=== PATIENT | male | born 1950 | race Caucasian/White ===

== ENCOUNTER 2016-08-23 16:21 | Emergency (ER) | payer OTHER, MEDICARE, MEDICAID ==
[2008-02-19 15:49] VITALS: BP 115/63
[~2016-08-23] VITALS: Ht 177.8 cm; Wt 102.3 kg
[~2016-08-23 16:21] MED LIST: ACTOS 15MG TAB15 MG PO; ACTOS30 MG PO; ASPIR-LOW81 MG PO; ASPIRIN 81M81 MG/TA2 PO; ATORVASTATIN; ETODOLAC400 MG PO; FORTAMET500 MG PO; GLUCOPHAGE1000 MG PO; LEVEMIR100 U/ML SC; LODINE400 MG PO; METFORMIN1000 MG PO; MOTRIN 400400 MG/TAB PO; MVI; PAXIL 10MG10 MG PO; PAXIL PO; PAXIL20 MG PO; TYLENOL ARTHRITIS; VICODIN 5/5001 UDTAB PO; ZYPREXA PO; ZYPREXA7.5 MG PO
[2016-08-23 17:17] VITALS: BP 138/78; PULSE 84
== END 2016-08-23 17:18 | disposition home or self-care (01) ==
LOC: COL.ER 16:21
DX: S16.1XXA Strain of muscle, fascia and tendon at neck level, initial encounter (principal); V49.88XA Car occupant (driver) (passenger) injured in other specified transport accidents, initial encounter; M25.78 Osteophyte, vertebrae

== ENCOUNTER → 2017-04-25 | Outpatient (CLI) | payer OTHER, MEDICARE, MEDICAID | LOC: SUN.DIA 12-17 09:16 | DX: E11.9 Type 2 diabetes mellitus without complications (principal); Z79.4 Long term (current) use of insulin; E78.5 Hyperlipidemia, unspecified; I10 Essential (primary) hypertension; E66.9 Obesity, unspecified; Z68.31 Body mass index [BMI] 31.0-31.9, adult; Z71.3 Dietary counseling and surveillance | CPT/HCPCS: G0108 ==

== ENCOUNTER → 2017-09-03 | Outpatient (CLI) | payer OTHER, MEDICARE, MEDICAID | LOC: SUN.DIA 08:37 | DX: E11.9 Type 2 diabetes mellitus without complications (principal); Z79.4 Long term (current) use of insulin; E78.5 Hyperlipidemia, unspecified; I10 Essential (primary) hypertension; E66.9 Obesity, unspecified; Z68.30 Body mass index [BMI] 30.0-30.9, adult; Z71.3 Dietary counseling and surveillance | CPT/HCPCS: G0108 ==

== ENCOUNTER → 2018-02-20 | Outpatient (CLI) | payer OTHER, MEDICARE, MEDICAID | LOC: SUN.DIA 10:08 | DX: E11.9 Type 2 diabetes mellitus without complications (principal); Z79.4 Long term (current) use of insulin; E78.5 Hyperlipidemia, unspecified; I10 Essential (primary) hypertension; E66.9 Obesity, unspecified; Z68.31 Body mass index [BMI] 31.0-31.9, adult; Z71.3 Dietary counseling and surveillance | CPT/HCPCS: G0108 ==

== ENCOUNTER → 2018-08-25 | Outpatient (CLI) | payer MEDICAID, MEDICARE | LOC: SUN.DIA 10:01 | DX: E11.9 Type 2 diabetes mellitus without complications (principal); E78.5 Hyperlipidemia, unspecified; I10 Essential (primary) hypertension; E66.9 Obesity, unspecified | CPT/HCPCS: G0108 ==

== ENCOUNTER 2018-12-21 14:31 | Emergency (ER) | payer OTHER, MEDICARE, MEDICAID ==
[2008-02-19 15:49] VITALS: BP 115/63
[~2018-12-21] VITALS: Ht 177.8 cm; Wt 100.0 kg
[2018-12-21 14:33] VITALS: TEMP 97.9
[2018-12-21] MEDS ORDERED: ZYPREXA20 MG PO (15:40)
[2018-12-21] MEDS ORDERED: FLEXERIL 1010 MG/TAB PO (15:42)
[2018-12-21 15:52] VITALS: BP 133/86; PULSE 90
== END 2018-12-21 15:53 | disposition home or self-care (01) ==
LOC: COL.ER 14:31
DX: S13.4XXA Sprain of ligaments of cervical spine, initial encounter (principal); E11.9 Type 2 diabetes mellitus without complications; Z79.82 Long term (current) use of aspirin; Z79.4 Long term (current) use of insulin; V43.52XA Car driver injured in collision with other type car in traffic accident, initial encounter

== ENCOUNTER → 2019-03-02 | Outpatient (CLI) | payer MEDICARE, MEDICAID ==
[~2019-03-02] MED LIST changes: +FLEXERIL 1010 MG/TAB PO; +ZYPREXA20 MG PO
== END ==
LOC: DIA.ED 10:07
DX: E11.9 Type 2 diabetes mellitus without complications (principal); E78.5 Hyperlipidemia, unspecified; I10 Essential (primary) hypertension; E66.9 Obesity, unspecified
CPT/HCPCS: G0108

== ENCOUNTER → 2019-09-28 | Outpatient (CLI) | payer MEDICARE, MEDICAID | LOC: DIA.ED 12:46 | DX: E11.9 Type 2 diabetes mellitus without complications (principal); Z79.4 Long term (current) use of insulin; Z68.32 Body mass index [BMI] 32.0-32.9, adult; E78.5 Hyperlipidemia, unspecified; I10 Essential (primary) hypertension | CPT/HCPCS: G0108 ==

== ENCOUNTER → 2020-03-28 | Outpatient (CLI) | payer MEDICARE, MEDICAID | LOC: DIA.ED 10:25 | DX: E11.9 Type 2 diabetes mellitus without complications (principal); Z79.84 Long term (current) use of oral hypoglycemic drugs; E78.5 Hyperlipidemia, unspecified; I10 Essential (primary) hypertension | CPT/HCPCS: G0270 ==

== ENCOUNTER 2020-04-27 19:16 | Emergency (ER) | payer MEDICARE, MEDICAID ==
[2008-02-19 15:49] VITALS: BP 115/63
[~2020-04-27] VITALS: Ht 177.8 cm; Wt 102.3 kg
[2020-04-27 19:27] VITALS: TEMP 97.3
[2020-04-27 20:32] LABS: BASO # 0.1 (0.0-0.2); EOS # 0.1 (0.0-0.7); GRAN # 3.5 (1.4-6.5); GRAN % 57.6 % (42.2-75.2); HEMATOCRIT 42.1 % (42.0-52.0); HEMOGLOBIN 15.1 g/dl (13.5-18.0); LYMPH # 1.9 (1.2-3.4); LYMPH % 31.6 % (20.0-51.0); MEAN CELL VOLUME 89 fl (80.0-100.0); MEAN CORPUSCULAR HEMOGLOBIN 32 pg (27.0-31.0); MEAN CORPUSCULAR HGB CONC 36 g/dl (33.0-37.0); MEAN PLATELET VOLUME 10.6 fl (7.4-10.4); MONO # 0.4 (0.1-0.6); MONO % 7.3 % (1.7-9.3); PLATELET COUNT 163 K/mm3 (130-400); RED BLOOD COUNT 4.73 M/mm3 (4.20-5.60); REDCELL DISTRIBUTION WIDTH-CV 12.4 % (11.5-14.5)
[2020-04-27 21:06] LABS: COLLECTION METHOD CLEAN CATCH
[2020-04-27 21:19] LABS: ALANINE AMINOTRANSFERASE 39 U/L (4-49); ALBUMIN 4.5 gm/dL (3.5-5.0); ALKALINE PHOSPHATASE 72 U/L (50-136); ANION GAP 12 mmol/L (7-16); AST,SGOT 48 U/L (15-37); BILIRUBIN,TOTAL 0.8 mg/dL (0.0-1.0); BLOOD UREA NITROGEN 16 mg/dL (9-20); CALCIUM 9.5 mg/dL (8.4-10.2); CARBON DIOXIDE 21 mmol/L (22-30); CHLORIDE 104 mmol/L (98-107); CREATININE, serum 1.03 (0.66-1.25); GLUCOSE 241 mg/dL (74-106); POTASSIUM 3.6 mmol/L (3.4-5.0); SODIUM 137 mmol/L (137-145); TOTAL PROTEIN 7.1 gm/dL (6.4-8.2)
[2020-04-27 21:20] LABS: ACETAMINOPHEN < 10 ug/mL (10-30); ALCOHOL(ethanol),MEDICAL < 10 mg/dL; C-REACTIVE PROTEIN < 0.5 mg/dL (0.0-0.9); SALICYLATE < 1.0 mg/dL
[2020-04-27 21:25] LABS: PH 5 (5-8); SQUAMOUS EPITHELIAL None Seen /hpf; URINE APPEARANCE Clear; URINE BACTERIA None Seen /hpf; URINE BILIRUBIN Negative (NEGATIVE); URINE BLOOD Negative (NEGATIVE); URINE COLOR Yellow; URINE GLUCOSE Negative (NEGATIVE); URINE KETONE Negative (NEGATIVE); URINE LEUKOCYTE ESTERASE Negative (NEGATIVE); URINE NITRATE Negative (NEGATIVE); URINE PROTEIN(semi-quant) Negative (NEGATIVE); URINE RBC 0-2 /hpf
[2020-04-27 21:34] LABS: TRICYCLIC ANTIDEPRESS URINE NEGATIVE
[2020-04-27 22:20] VITALS: BP 132/98; PULSE 92
== END 2020-04-27 22:20 | disposition home or self-care (01) ==
LOC: COL.ER 19:16
PROVIDERS: Emergency Medicine
DX: F29 Unspecified psychosis not due to a substance or known physiological condition (principal); E11.65 Type 2 diabetes mellitus with hyperglycemia; I10 Essential (primary) hypertension; Z79.4 Long term (current) use of insulin; Z79.82 Long term (current) use of aspirin
CPT/HCPCS: J1815; J7030

== ENCOUNTER → 2020-08-29 | Outpatient (CLI) | payer MEDICARE, MEDICAID | LOC: DIA.ED 13:26 | DX: E11.9 Type 2 diabetes mellitus without complications (principal); Z79.84 Long term (current) use of oral hypoglycemic drugs; E78.5 Hyperlipidemia, unspecified; I10 Essential (primary) hypertension; E66.8 Other obesity | CPT/HCPCS: G0108 ==

== ENCOUNTER → 2021-01-30 | Outpatient (CLI) | payer MEDICARE, MEDICAID | LOC: DIA.ED 09:12 | DX: E11.9 Type 2 diabetes mellitus without complications (principal); Z79.84 Long term (current) use of oral hypoglycemic drugs; E78.5 Hyperlipidemia, unspecified; I10 Essential (primary) hypertension | CPT/HCPCS: G0270 ==

== ENCOUNTER → 2021-07-03 | Outpatient (CLI) | payer MEDICARE, MEDICAID | LOC: DIA.ED 09:41 | DX: E11.65 Type 2 diabetes mellitus with hyperglycemia (principal); Z79.84 Long term (current) use of oral hypoglycemic drugs; E78.5 Hyperlipidemia, unspecified; I10 Essential (primary) hypertension | CPT/HCPCS: G0270 ==

== ENCOUNTER → 2021-09-18 | Outpatient (CLI) | payer MEDICARE, MEDICAID | LOC: ZCOL.LAB 16:31 | DX: R09.81 Nasal congestion (principal); Z20.822 Contact with and (suspected) exposure to COVID-19 ==

== ENCOUNTER → 2021-11-27 | Outpatient (CLI) | payer MEDICARE, MEDICAID | LOC: DIA.ED 10:17 | DX: E11.65 Type 2 diabetes mellitus with hyperglycemia (principal); Z79.84 Long term (current) use of oral hypoglycemic drugs; E78.5 Hyperlipidemia, unspecified; I10 Essential (primary) hypertension | CPT/HCPCS: G0270 ==

== ENCOUNTER 2022-02-01 19:03 | Emergency (ER) | payer MEDICARE, MEDICAID ==
[~2022-02-01] VITALS: Ht 177.8 cm; Wt 90.9 kg
[2022-02-01 20:26] LABS: BASO % 0.8 % (0.0-2.0); EOS # 0.1 K/mm3 (0.0-0.7); EOS % 1.1 % (0.0-4.0); GRAN # 4.1 K/mm3 (1.4-6.5); GRAN % 78.9 % (42.2-75.2); HEMATOCRIT 38.4 % (42.0-52.0); HEMOGLOBIN 13.4 g/dl (13.5-18.0); LYMPH # 0.5 K/mm3 (1.2-3.4); LYMPH % 9.6 % (20.0-51.0); MEAN CELL VOLUME 90 fl (80.0-100.0); MEAN CORPUSCULAR HEMOGLOBIN 32 pg (27-31); MEAN CORPUSCULAR HGB CONC 35 g/dl (33.0-37.0); MEAN PLATELET VOLUME 10.1 fl (7.4-10.4); MONO # 0.5 K/mm3 (0.1-0.6); MONO % 9.2 % (1.7-9.3); PLATELET COUNT 145 K/mm3 (130-400); RED BLOOD COUNT 4.26 M/mm3 (4.20-5.60); REDCELL DISTRIBUTION WIDTH-CV 12.7 % (11.5-14.5)
[2022-02-01 20:44] LABS: ALANINE AMINOTRANSFERASE 32 U/L (0-55); ALBUMIN 3.6 gm/dL (3.4-4.8); ALKALINE PHOSPHATASE 66 U/L (40-150); ANION GAP 12 mmol/L (7-16); AST,SGOT 27 U/L (5-34); BILIRUBIN,TOTAL 0.8 mg/dL (0.2-1.2); BLOOD UREA NITROGEN 13 mg/dL (8-26); C-REACTIVE PROTEIN 0.21 mg/dL (0.00-0.50); CALCIUM 8.8 mg/dL (8.4-10.2); CARBON DIOXIDE 21 mmol/L (23-31); CHLORIDE 105 mmol/L (98-107); CREATININE, serum 0.77 mg/dL (0.72-1.25); GLUCOSE 183 mg/dL (70-99); POTASSIUM 3.7 mmol/L (3.5-4.5); SODIUM 138 mmol/L (136-145); TOTAL PROTEIN 6.4 gm/dL (6.2-8.1)
[2022-02-01 20:54] LABS: TROPONIN-I < 0.010 ng/mL (0.00-0.033)
[2022-02-01 21:39] LABS: COLLECTION METHOD CLEAN CATCH
[2022-02-01 21:54] LABS: PH 6 (5-8); SQUAMOUS EPITHELIAL None Seen /hpf (0-10); URINE APPEARANCE Clear (CLEAR/HAZY); URINE BACTERIA None Seen /hpf (NONE SEEN); URINE BILIRUBIN Negative (NEGATIVE); URINE BLOOD Negative (NEGATIVE); URINE COLOR Yellow (YELLOW); URINE GLUCOSE Negative (NEGATIVE); URINE KETONE Negative (NEGATIVE); URINE LEUKOCYTE ESTERASE Negative (NEGATIVE); URINE NITRATE Negative (NEGATIVE); URINE PROTEIN(semi-quant) Negative (NEGATIVE); URINE RBC None Seen /hpf (0-2); URINE UROBILINOGEN >=4.0 (NEGATIVE)
[2022-02-01 22:19] VITALS: BP 138/82; PULSE 98; TEMP 98.9
== END 2022-02-01 22:19 | disposition home or self-care (01) ==
LOC: COL.ER 19:03
PROVIDERS: Family Medicine
DX: R53.81 Other malaise (principal)
CPT/HCPCS: J7030

== ENCOUNTER 2023-10-11 19:49 | Emergency (ER) | payer MEDICARE, MEDICAID ==
[~2023-10-11] VITALS: Ht 177.8 cm; Wt 97.7 kg
[2023-10-11] MEDS ORDERED: Clindamycin 150 MG CAP PO ONE (20:30)
[2023-10-11] MEDS ORDERED: Ibuprofen 400 MG TAB PO ONE (20:30)
[2023-10-11 20:33] VITALS: BP 150/80; PULSE 98; TEMP 97.6
[2023-10-11] MEDS ORDERED: CLEOCIN HC150 MG/CAP PO (20:35)
== END 2023-10-11 20:32 | disposition home or self-care (01) ==
LOC: COL.ER 19:49
DX: K04.7 Periapical abscess without sinus (principal); K02.9 Dental caries, unspecified; Z88.0 Allergy status to penicillin